=== PATIENT | female | born 1985 | race African-American/Black ===

== ENCOUNTER 2016-09-14 14:25 | Emergency (ER) | payer OTHER ==
[~2016-09-14] VITALS: Ht 162.6 cm; Wt 85.1 kg
[2016-09-14 15:03] LABS: POINT-OF-CARE METER ID UU13113747
[2016-09-14 16:10] LABS: HEMATOCRIT 37.5 % (36.0-46.0); MCH 28.9 PG (29.0-34.0); MCHC 33.3 G/DL (30.0-36.0); MCV 86.6 FL (83-99); MEAN PLAT.VOLUME 10.5 uM^3 (9.5-12.4); PLATELET COUNT 216 K/uL (156-360); RBC DIS.WIDTH-CV 13.2 % (11.8-14.6); RBC DIS.WIDTH-SD 41.8 % (39-53); RED BLOOD COUNT 4.33 M/uL (3.80-5.20); WHITE BLOOD COUNT 5.8 K/uL (4.1-10.2)
[2016-09-14 16:19] LABS: CHLORIDE 107 mEq/L (99-109); POTASSIUM 3.6 mEq/L (3.7-5.4); SODIUM 136 mEq/L (136-147)
[2016-09-14 16:21] LABS: GLUCOSE 106 mg/dL (70-99)
[2016-09-14 16:22] LABS: ANION GAP 5 MEQ/L (2-14)
[2016-09-14 16:25] LABS: GFR ESTIMATE (CALCULATED) > 59 mL/min/
[2016-09-14 16:26] LABS: UREA NITROGEN (BUN) 9 mg/dL (9-23)
[2016-09-14 17:54] VITALS: BP 138/89
== END 2016-09-14 17:55 | disposition home or self-care (01) ==
LOC: EME 14:25
PROVIDERS: Emergency Medicine
DX: R55 Syncope and collapse (principal); J45.909 Unspecified asthma, uncomplicated; Z87.891 Personal history of nicotine dependence
CPT/HCPCS: 80048; 82948; 85027; 93005; 99281; 99285; J7030